=== PATIENT | female | born 1990 ===

== ENCOUNTER 2018-07-16 19:21 | Emergency (ER) | payer OTHER ==
[2018-07-16 20:26] VITALS: RESP 18; O2SAT 97
--- NOTE | 2018-07-16 20:46 | ED PDOC ---
HPI: Female Pain Time Seen by Provider: 07/16/18 20:04 Chief Complaint (Nursing): Female Genitourinary Chief Complaint (Provider): ; vaginal spotting History Per: Patient History/Exam Limitations: no limitations Onset/Duration Of Symptoms: Hrs Current Symptoms Are (Timing): Still Present Quality Of Discomfort: Cramping Additional Complaint(s): 28 y/o female, approximately 15 weeks gestation, presents for evaluation of vaginal spotting x 5 hours. Patient states she has been experiencing lower cramping since this am. Denies fever, nausea/vomiting, chest pain, shortness of breath, palpitations, changes in bowel movements, urinary symptoms. Abnormal Vaginal Bleeding: Yes Last Menstral Period: 04/03/18 : 4 Para: 3 Miscarriage: 0 Past Medical History Reviewed: Historical Data, Nursing Documentation, Vital Signs Vital Signs: Last Vital Signs Temp 98.3 F 07/16/18 20:13 Pulse 77 07/16/18 20:13 Resp 18 07/16/18 20:13 BP 98/53 L 07/16/18 20:13 Pulse Ox 97 07/16/18 20:13 - Medical History PMH: No Chronic Diseases - Surgical History Surgical History: No Surg Hx - Family History Family History: States: No Known Family Hx - Living Arrangements Living Arrangements: With Family - Allergies Allergies/Adverse Reactions: Allergies Allergy/AdvReac Type Severity Reaction Status Date / Time Penicillins Allergy unknown Verified 07/16/18 20:13 childhood allergy Review of Systems ROS Statement: Except As Marked, All Systems Reviewed And Found Negative Genitourinary Female: Positive for: Vaginal Bleeding, Pelvic Pain Physical Exam - Reviewed Nursing Documentation Reviewed: Yes Vital Signs Reviewed: Yes - Physical Exam Appears: Positive for: Well, Non-toxic, No Acute Distress Head Exam: Positive for: ATRAUMATIC, NORMAL INSPECTION, NORMOCEPHALIC Skin: Positive for: Normal Color Eye Exam: Positive for: Normal appearance ENT: Positive for: Normal ENT Inspection Cardiovascular/Chest: Positive for: Regular Rate, Rhythm Respiratory: Positive for: Normal Breath Sounds Gastrointestinal/Abdominal: Positive for: Bowel Sounds, Soft, Tenderness (suprapubic, LLQ) Pelvic Exam: Positive for: External Exam Normal, Speculum Exam Normal, No Cerv. Motion Tender, Other (exam shoer [facility]). Negative for: Active Bleeding Back: Positive for: Normal Inspection. Negative for: L CVA Tenderness, R CVA Tenderness Extremity: Positive for: Normal ROM Neurologic/Psych: Positive for: Alert, Oriented (x3) - Laboratory Results Result Diagrams: 07/16/18 21:32 07/16/18 21:32 - ECG O2 Sat by Pulse Oximetry: 97 - Progress ED Course And Treament: -upreg -udip -cbc -cmp -beta hcg -type & screen -Ob u/s -urinalysis EXAM: US Obstetrical, Complete >14 weeks. CLINICAL HISTORY: Spotting, cramping past couple of days with TECHNIQUE: Transabdominal imaging of the maternal pelvis and a > 14 week gestation with image documentation. COMPARISON: None provided. FINDINGS: FETUS: There is a single living intrauterine gestation, estimated gestational age 14 weeks and 6 days +/- 1 week and 0 days. POSITION: position is variable. HEART RATE: The heart rate is 146 beats per minute. BIOMETRICS: Based on composite biometry, the estimated gestational age by ultrasound is 14 weeks and 6 days. ANATOMIC SURVEY: The visualized anatomy is unremarkable. PLACENTA: The placenta is located anteriorly. No sonographic evidence for previa or abruption. AMNIOTIC FLUID: Within normal limits. CERVIX: Closed. Unremarkable as visualized. Measured 4.4 cm in longitudinal length. IMPRESSION: Single living intrauterine . No acute abnormality Patient educated on findings, discharged with instructions to follow up with Service Delivery Supervisor within 2-3 days Return precautions given Disposition - Clinical Impression Clinical Impression: Vaginal bleeding during - Patient ED Disposition Is Patient to be Admitted: No Counseled Patient/Family Regarding: Studies Performed, Diagnosis, Need For Followup - Disposition Disposition: Routine/Home Disposition Time: 00:00 Condition: IMPROVED Instructions: Bleeding With Forms: [employer] ([place]ian)
[2018-07-16 21:49] LABS: BASO % 0.3 % (0.0-2.0); EOS % 0.6 % (0.0-4.0); HEMOGLOBIN 10.3 g/dL (12.0-16.0); LYMPH % 27.8 % (20.0-40.0); MEAN CORPUSCULAR HEMOGLOBIN 28.3 pg (27.0-31.0); MEAN CORPUSCULAR HGB CONC 33.7 g/dL (33.0-37.0); MEAN PLATELET VOLUME 8.6 fl (7.2-11.7); MONO # 0.5 K/uL (0.0-0.8); MONO % 7.8 % (0.0-10.0); NEUT # 4.5 K/uL (1.8-7.0); NEUT % 63.5 % (50.0-75.0); RBC 3.65 Mil/uL (3.80-5.20); RED CELL DISTRIBUTION WIDTH 14.7 % (11.5-14.5)
[2018-07-16 22:02] LABS: ALB/GLOB RATIO 1.2 (1.0-2.1); ALBUMIN 3.6 g/dL (3.5-5.0); ALT/SGPT 20 U/L (9-52); AST/SGOT 17 U/L (14-36); BLOOD UREA NITROGEN 8 mg/dl (7-17); CALCIUM 8.6 mg/dL (8.4-10.2); GFR NON-AFRICAN AMERICAN > 60
[2018-07-16 22:30] LABS: URINE BILIRUBIN NEGATIVE (NEGATIVE); URINE BLOOD NEGATIVE (NEGATIVE); URINE CLARITY CLEAR (Clear); URINE COLOR YELLOW (YELLOW); URINE GLUCOSE (UA) NEG (NEGATIVE); URINE LEUKOCYTE ESTERASE NEG Leu/uL (Negative); URINE PROTEIN NEGATIVE (NEGATIVE); URINE UROBILINOGEN 0.2-1.0 mg/dL (0.2-1.0)
[2018-07-17] MEDS ORDERED: Sodium Chloride 0.9% 1,000 ML IV STA (00:57)
[2018-07-17 02:09] VITALS: BP 95/59; PULSE 78; TEMP 98.2
--- NOTE | 2018-07-17 10:59 | US ---
Date of service: 07/16/2018 PROCEDURE: OB Pelvic Ultrasound HISTORY: ; cramping, spotting LMP: 04/03/2018 COMPARISON: None available. FINDINGS: UTERUS: Placenta: Anterior Presentation: Transverse BPD: 3.0 cm compatible with estimated gestational age of 15 weeks, 3 days HC: 10.7 cm compatible with estimated gestational age of 15 weeks, 1 day AC: 8.5 cm compatible with estimated gestational age of 14 weeks, 6 days FL: 1.4 cm compatible with estimated gestational age of 14 weeks, 0 days Heart rate: 146 bpm. age (Ultrasound estimated): 14 weeks, 6 days Rafia-gestational hemorrhage: None. Date of delivery (Ultrasound estimated) : 01/08/2019 CERVIX: Measures 4.4 cm. Long and closed. No cervical abnormality seen. RIGHT OVARY: Not visualized LEFT OVARY: Not visualized FREE FLUID: None. OTHER FINDINGS: None. IMPRESSION: Single live intrauterine gestation with average ultrasound age of 14 weeks, 6 days. heart rate 146 beats per minute. Cervix long and closed.
== END 2018-07-17 02:09 | disposition home or self-care (01) ==
LOC: H.ER 19:21
DX: O20.8 Other hemorrhage in early pregnancy (principal)
CPT/HCPCS: 76815; 80053; 81003; 81025; 84702; 85025; 86850; 86900; 96360; 99284; J7030

== ENCOUNTER → 2018-10-09 | Emergency (ER) | payer OTHER ==
[2018-10-09 11:48] VITALS: BMI 22.4
[2018-10-09 12:46] LABS: HEMOGLOBIN 10.2 g/dL (12.0-16.0); MEAN CORPUSCULAR HEMOGLOBIN 28.6 pg (27.0-31.0); RBC 3.58 Mil/uL (3.80-5.20); RED CELL DISTRIBUTION WIDTH 13.2 % (11.5-14.5); WHITE BLOOD COUNT 8.9 K/uL (4.8-10.8)
== END | disposition home or self-care (01) ==
LOC: H.EROB2 09:45
DX: O26.92 Pregnancy related conditions, unspecified, second trimester (principal); R10.2 Pelvic and perineal pain; M54.5 Low back pain; Z3A.27 27 weeks gestation of pregnancy